=== PATIENT | female | born 1975 | race Caucasian/White ===

== ENCOUNTER → 2022-03-13 | Day surgery (SDC) | payer BC ==
[~2022-03-13] MED LIST: Albuterol 0.083% 2.5 MG/3 ML Neb Soln NEB PRN; HYDROmorphone 1 MG/ML Syringe IVPUSH PRN; Lactated Ringers 1,000 ML IV SCH; Metoclopramide 10 MG/2 ML SDV IVPUSH PRN; Naloxone 0.4 MG/ML SDV IVPUSH PRN; Ondansetron 4 MG/2 ML SDV IVPUSH PRN; Ondansetron 4 MG/2 ML SDV ONE; fentaNYL 50 MCG/ML SDV IVPUSH PRN
== END | disposition home or self-care (01) ==
LOC: MW.SDS 06:30
PROVIDERS: ATTEND Obstetrics & Gynecology
DX: N84.1 Polyp of cervix uteri (principal)
CPT/HCPCS: 36415; 84703; 85027; J2405; J7120